=== PATIENT | female | born 1990 | race American Indian/Alaskan Native ===

== ENCOUNTER 2020-12-06 02:56 | Emergency (ER) | payer SELFPAY ==
[2020-12-06 03:29] LABS: Bilirubin,Urine NEG (Negative); Blood,Urine LG (Negative); Color,Urine Yellow (Yellow); Mucus,Urine 3+ /HPF; Urobilinogen,Urine < 2.0 mg/dL (<2.0)
[2020-12-06 03:30] LABS: RBC,Urine > 182.0 /HPF (0.0-6.0); WBC,Urine > 182.0 /HPF (0.0-6.0)
[2020-12-06 03:31] LABS: HCG Qualitative,Urine Positive (Negative)
[2020-12-06] MEDS ORDERED: LIDOCAINE-MPF (1%) 10 MG/1 ML VIAL 5 ML INFILTRATI ONE (03:51)
[2020-12-06 04:02] LABS: Basophils % (Auto) 0.1 % (0.0-1.8); Eosinophils % (Auto) 0.2 % (0.0-4.3); Hematocrit 34.8 % (30.3-42.9); Hemoglobin 12.1 gm/dl (10.1-14.3); Lymphocytes # (Auto) 0.7 K/mm3 (1.2-5.4); Mean Corpuscular HGB Conc 35 % (30-34); Mean Corpuscular Volume 93 fl (79-97); Monocytes # (Auto) 0.8 K/mm3 (0.0-0.8); Monocytes % (Auto) 5.4 % (0.0-7.3); Platelet Count 247 K/mm3 (140-440); Red Blood Count 3.74 M/mm3 (3.65-5.03); Red Cell Distribution Width 13.4 % (13.2-15.2)
[2020-12-06] MEDS ORDERED: cefTRIAXone/NS 2 GM/100 ML 2 GM/100 ML BAG IV ONE (04:02)
[2020-12-06] MEDS ORDERED: ACETAMINOPHEN 500 MG TAB PO ONE (04:17)
[2020-12-06 04:23] LABS: Alanine Aminotransferase 13 units/L (7-56); Albumin 4.3 g/dL (3.9-5); Blood Urea Nitrogen 9 mg/dL (7-17); Hemolysis Index 2
[2020-12-06 04:29] LABS: BUN/Creatinine Ratio 15
[2020-12-06] MEDS ORDERED: SODIUM CHLORIDE 0.9% 1000 ML 2,000 ML IV ONE (04:30)
--- NOTE | 2020-12-06 05:29 | Ultrasound Report ---
ULTRASOUND OBSTETRIC INDICATION / CLINICAL INFORMATION: pelvic pain. TECHNIQUE: Transabdominal and Transvaginal. COMPARISON: None available. FINDINGS: No IUP visualized on transabdominal or transvaginal images ADNEXA: Left ovarian corpus luteal cyst measures 0.7 x 1.0 x 0.7 cm. Right ovary within normal limits . FREE FLUID: None. ADDITIONAL FINDINGS: None. IMPRESSION: 1. No IUP visualized. Follow-up with hCG and ultrasound recommended 2. 1 cm complex left corpus luteal cyst Signer Name: Yo Lieberman MD Signed: 12/06/2020 5:25 AM Workstation Name: [email or web address]
--- NOTE | 2020-12-06 05:40 | Emergency Department Report ---
ED HPI - General Chief complaint: Urogenital-Female Stated complaint: ABD PAIN/BURNING URINATION Time Seen by Provider: 12/06/20 03:17 Source: patient Mode of arrival: Ambulatory Limitations: No Limitations - History of Present Illness Initial comments: This is a 30-year-old female nontoxic, well nourished in appearance, no acute signs of distress presents to the ED with c/o of dysuria, pelvic pain, and vaginal bleeding x1 day. Patient is unsure if shes . LMP was about 11/01/2020. Patient denies any upper abdominal pain. Denies any flank pains. Patient denies any vaginal discharge or foul odor. Patient denies any nausea, v omiting, chest pain, shortness of breathe, fever, chills, headache, stiff neck, numbness, tingling. Patient denies any other urinary symptoms. Patient denies any allergies or PMH. -: days(s) Location: pelvis Radiation: none Severity: mild Severity scale (0 -10): 3 Quality: cramping, aching Consistency: intermittent Improves with: none Worsens with: none Associated symptoms: vaginal bleeding, dysuria. denies: nausea/vomiting, vaginal discharge, abdominal pain, headache, vision changes, malaise, dysparuenia, rash, seizure, shortness of breath, syncope, weakness Vaginal bleeding: light :: Yes Pre-meenu care: none - Related Data Previous Rx's Medication Instructions Recorded Last Taken Type Nitrofurantoin Dare/M-Cryst 100 mg PO Q12HR #14 capsule 12/06/20 Unknown Rx [Macrobid CAP] 21/Iron Fu/Folic Acid 1 each PO DAILY #30 tablet 12/06/20 Unknown Rx [ Complete Caplet] Allergies Allergy/AdvReac Type Severity Reaction Status Date / Time coconut Allergy Anaphylaxis Verified 12/06/20 02:58 ED Review of Systems ROS: Stated complaint: ABD PAIN/BURNING URINATION Other details as noted in HPI Comment: All other systems reviewed and negative Constitutional: denies: chills, fever Eyes: denies: eye pain, eye discharge, vision change ENT: denies: ear pain, throat pain Respiratory: denies: cough, shortness of breath, wheezing Cardiovascular: denies: chest pain, palpitations Endocrine: no symptoms reported Gastrointestinal: denies: abdominal pain, nausea, diarrhea Genitourinary: dysuria, abnormal menses. denies: urgency, frequency, hematuria, discharge, dyspareunia Musculoskeletal: denies: back pain, joint swelling, arthralgia Skin: denies: rash, lesions Neurological: denies: headache, weakness, paresthesias Psychiatric: denies: anxiety, depression Hematological/Lymphatic: denies: easy bleeding, easy bruising ED Past Medical Hx - Past Medical History Previous Medical History?: No - Surgical History Past Surgical History?: No - Social History Smoking Status: Never Smoker Substance Use Type: None - Medications Home Medications: Home Medications Medication Instructions Recorded Confirmed Last Taken Type Nitrofurantoin Dare/M-Cryst 100 mg PO Q12HR #14 capsule 12/06/20 Unknown Rx [Macrobid CAP] 21/Iron Fu/Folic Acid 1 each PO DAILY #30 tablet 12/06/20 Unknown Rx [ Complete Caplet] ED Physical Exam - General Limitations: No Limitations General appearance: alert, in no apparent distress - Head Head exam: Present: atraumatic, normocephalic - Eye Eye exam: Present: normal appearance - Neck Neck exam: Present: normal inspection, full ROM. Absent: tenderness, meningismus, lymphadenopathy - Respiratory Respiratory exam: Present: normal lung sounds bilaterally. Absent: respiratory distress, wheezes, rales, rhonchi, stridor, chest wall tenderness, accessory muscle use, decreased breath sounds, prolonged expiratory - Cardiovascular Cardiovascular Exam: Present: regular rate, normal rhythm, normal heart sounds. Absent: irregular rhythm, systolic murmur, diastolic murmur, rubs, gallop - GI/Abdominal GI/Abdominal exam: Present: soft, normal bowel sounds. Absent: distended, tenderness, guarding, rebound, rigid, diminished bowel sounds - Extremities Exam Extremities exam: Present: full ROM - Back Exam Back exam: Present: normal inspection, full ROM. Absent: tenderness, CVA tenderness (R), CVA tenderness (L), muscle spasm, paraspinal tenderness, vertebral tenderness, rash noted - Neurological Exam Neurological exam: Present: alert, oriented X3, normal gait - Psychiatric Psychiatric exam: Present: normal affect, normal mood - Skin Skin exam: Present: warm, dry, intact, normal color. Absent: rash ED Course Vital Signs 12/06/20 12/06/20 12/06/20 03:00 03:17 03:18 Temperature 97.9 F 97.9 F Pulse Rate 101 H 101 H Respiratory 16 16 16 Rate Blood Pressure 124/55 Blood Pressure 124/55 [Left] O2 Sat by Pulse 100 100 100 Oximetry - Reevaluation(s) Reevaluation #1: 12/06/20 05:38 Patient is speaking in full sentences with no signs of distress noted. ED Medical Decision Making - Lab Data Result diagrams: 12/06/20 03:30 12/06/20 03:30 Lab Results 12/06/20 12/06/20 12/06/20 Range/Units 03:10 03:30 03:30 WBC 14.7 H (4.5-11.0) K/mm3 RBC 3.74 (3.65-5.03) M/mm3 Hgb 12.1 (10.1-14.3) gm/dl Hct 34.8 (30.3-42.9) % MCV 93 (79-97) fl MCH 32 (28-32) pg MCHC 35 H (30-34) % RDW 13.4 (13.2-15.2) % Plt Count 247 (140-440) K/mm3 Lymph % (Auto) 5.0 L (13.4-35.0) % Dare % (Auto) 5.4 (0.0-7.3) % Eos % (Auto) 0.2 (0.0-4.3) % Baso % (Auto) 0.1 (0.0-1.8) % Lymph # (Auto) 0.7 L (1.2-5.4) K/mm3 Dare # (Auto) 0.8 (0.0-0.8) K/mm3 Eos # (Auto) 0.0 (0.0-0.4) K/mm3 Baso # (Auto) 0.0 (0.0-0.1) K/mm3 Seg Neutrophils % 89.3 H (40.0-70.0) % Seg Neutrophils # 13.1 H (1.8-7.7) K/mm3 Sodium 130 L (137-145) mmol/L Potassium 4.1 (3.6-5.0) mmol/L Chloride 96.1 L (98-107) mmol/L Carbon Dioxide 23 (22-30) mmol/L Anion Gap 15 mmol/L BUN 9 (7-17) mg/dL Creatinine 0.6 (0.6-1.2) mg/dL Estimated GFR > 60 ml/min BUN/Creatinine Ratio 15 % Glucose 111 H (65-100) mg/dL Calcium 9.0 (8.4-10.2) mg/dL Total Bilirubin 0.60 (0.1-1.2) mg/dL AST 19 (5-40) units/L ALT 13 (7-56) units/L Alkaline Phosphatase 45 (35-129) units/L Total Protein 7.2 (6.3-8.2) g/dL Albumin 4.3 (3.9-5) g/dL Albumin/Globulin Ratio 1.5 % Lipase 15 (13-60) units/L HCG, Quant (0-4) mIU/mL Urine Color Yellow (Yellow) Urine Turbidity Cloudy (Clear) Urine pH 5.0 (5.0-7.0) Ur Specific [place] 1.018 (1.003-1.030) Urine Protein 100 mg/dl (Negative) mg/dL Urine Glucose (UA) Neg (Negative) mg/dL Urine Ketones Tr (Negative) mg/dL Urine Blood Lg (Negative) Urine Nitrite Pos (Negative) Urine Bilirubin Neg (Negative) Urine Urobilinogen < 2.0 (<2.0) mg/dL Ur Leukocyte Esterase Lg (Negative) Urine WBC (Auto) > 182.0 H (0.0-6.0) /HPF Urine RBC (Auto) > 182.0 (0.0-6.0) /HPF U Epithel Cells (Auto) 11.0 (0-13.0) /HPF Urine WBC Clumps 3+ /HPF Urine Mucus 3+ /HPF Urine Yeast (Budding) 3+ /HPF Urine HCG, Qual Positive A (Negative) Blood Type 12/06/20 12/06/20 Range/Units 03:30 03:50 WBC (4.5-11.0) K/mm3 RBC (3.65-5.03) M/mm3 Hgb (10.1-14.3) gm/dl Hct (30.3-42.9) % MCV (79-97) fl MCH (28-32) pg MCHC (30-34) % RDW (13.2-15.2) % Plt Count (140-440) K/mm3 Lymph % (Auto) (13.4-35.0) % Dare % (Auto) (0.0-7.3) % Eos % (Auto) (0.0-4.3) % Baso % (Auto) (0.0-1.8) % Lymph # (Auto) (1.2-5.4) K/mm3 Dare # (Auto) (0.0-0.8) K/mm3 Eos # (Auto) (0.0-0.4) K/mm3 Baso # (Auto) (0.0-0.1) K/mm3 Seg Neutrophils % (40.0-70.0) % Seg Neutrophils # (1.8-7.7) K/mm3 Sodium (137-145) mmol/L Potassium (3.6-5.0) mmol/L Chloride (98-107) mmol/L Carbon Dioxide (22-30) mmol/L Anion Gap mmol/L BUN (7-17) mg/dL Creatinine (0.6-1.2) mg/dL Estimated GFR ml/min BUN/Creatinine Ratio % Glucose (65-100) mg/dL Calcium (8.4-10.2) mg/dL Total Bilirubin (0.1-1.2) mg/dL AST (5-40) units/L ALT (7-56) units/L Alkaline Phosphatase (35-129) units/L Total Protein (6.3-8.2) g/dL Albumin (3.9-5) g/dL Albumin/Globulin Ratio % Lipase (13-60) units/L HCG, Quant 924.9 H (0-4) mIU/mL Urine Color (Yellow) Urine Turbidity (Clear) Urine pH (5.0-7.0) Ur Specific [place] (1.003-1.030) Urine Protein (Negative) mg/dL Urine Glucose (UA) (Negative) mg/dL Urine Ketones (Negative) mg/dL Urine Blood (Negative) Urine Nitrite (Negative) Urine Bilirubin (Negative) Urine Urobilinogen (<2.0) mg/dL Ur Leukocyte Esterase (Negative) Urine WBC (Auto) (0.0-6.0) /HPF Urine RBC (Auto) (0.0-6.0) /HPF U Epithel Cells (Auto) (0-13.0) /HPF Urine WBC Clumps /HPF Urine Mucus /HPF Urine Yeast (Budding) /HPF Urine HCG, Qual (Negative) Blood Type O POSITIVE - Radiology Data [address] [address] Ultrasound Report Signed Patient: RENATA LUCIANO MR#: [id number] : 1990 Acct:[id number] Age/Sex: 30 / F ADM Date: 12/06/20 Loc: ED Attending Dr: Ordering Physician: DINA JAMES NP Date of Service: 12/06/20 Procedure(s): US OB transvaginal Accession Number(s): [id number] cc: DINA JAMES NP ULTRASOUND OBSTETRIC INDICATION / CLINICAL INFORMATION: pelvic pain. TECHNIQUE: Transabdominal and Transvaginal. COMPARISON: None available. FINDIN GS: No IUP visualized on transabdominal or transvaginal images ADNEXA: Left ovarian corpus luteal cyst measures 0.7 x 1.0 x 0.7 cm. Right ovary within normal limits. FREE FLUID: None. ADDITIONAL FINDINGS: None. IMPRESSION: 1. No IUP visualized. Follow-up with hCG and ultrasound recommended 2. 1 cm complex left corpus luteal cyst Signer Name: Yo Lieberman MD Signed: 12/06/2020 5:25 AM Workstation Name: [id number] Transcribed By: TL Dictated By: Yo Lieberman MD Electronically Authenticated By: Yo Lieberman MD Signed Date/Time: 12/06/20524 DD/ 2 TD/TT: [address] [address] Ultrasound Report Signed Patient: RENATA LUCIANO MR#: [id number] : 1990 Acct:[id number] Age/Sex: 30 / F ADM Date: 12/06/20 Loc: ED Attending Dr: Ordering Physician: DINA JAMES NP Date of Service: 12/06/20 Procedure(s): US OB transvaginal Accession Number(s): [id number] cc: DINA JAMES NP ULTRASOUND OBSTETRIC INDICATION / CLINICAL INFORMATION: pelvic pain. TECHNIQUE: Transabdominal and Transvaginal. COMPARISON: None available. FINDINGS: No IUP visualized on transabdominal or transvaginal images ADNEXA: Left ovarian corpus luteal cyst measures 0.7 x 1.0 x 0.7 cm. Right ovary within normal limits. FREE FLUID: None. ADDITIONAL FINDINGS: None. IMPRESSION: 1. No IUP visualized. Follow-up with hCG and ultrasound recommended 2. 1 cm complex left corpus luteal cyst Signer Name: Yo Lieberman MD Signed: 12/06/2020 5:25 AM Workstation Name: [id number] Transcribed By: TL Dictated By: Yo Lieberman MD Electronically Authenticated By: Yo Lieberman MD Signed Date/Time: 12/06/20524 DD/ 2 TD/TT: - Medical Decision Making This is a 30-year-old female presents with threatened miscarriage and UTI. P atient is stable and was examined by me. Normal abdominal exam. US OB obtained and dictated by the radiologist. Ua obtained. Quantative serum test obtained. Patient received Rocephin IV and Tylenol was stated symptoms of pain significantly decreased and resolved prior to discharge. Patient notified of the US report with no questions noted by the patient. Patient was instructed f/u with [facility] in 2 days for a repeat quantitative test and possible ultrasound. RH factor positive. Labs within normal limits. Patient was given strict precautions and education on ectopic . At time of discharge, the patient does not seem toxic or ill in appearance. No acute signs of distre ss noted. Patient agrees to discharge treatment plan of care. No further questions noted by the patient. Critical care attestation.: If time is entered above; I have spent that time in minutes in the direct care of this critically ill patient, excluding procedure time. ED Disposition Clinical Impression: Threatened miscarriage UTI in Qualifiers: Trimester: first trimester Qualified Code(s): O23.41 - Unspecified infection of urinary tract in , first trimester Disposition: - TO HOME OR SELFCARE Is pt being admited?: No Does the pt Need Aspirin: No Condition: Stable Instructions: Threatened Miscarriage, Urinary Tract Infection, Adult, [id number] Additional Instructions: Follow-up with a [facility] doctor in 2 days for a repeat blood test and possible ultrasound or if symptoms worsen and continue return to emergency room as soon as possible. Prescriptions: Nitrofurantoin Dare/M-Cryst [Macrobid CAP] 100 mg PO Q12HR #14 capsule 21/Iron Fu/Folic Acid [ Complete Caplet] 1 each PO DAILY #30 tablet Referrals: PRIMARY CAREMD [Primary Care Provider] - 3-5 Days [facility] [Provider Group] - 12/08/20 [facility] [Provider Group] - 12/08/20 Time of Disposition: 05:41
[2020-12-06 06:07] VITALS: BP 105/60
== END 2020-12-06 06:08 | disposition home or self-care (01) ==
LOC: ED 02:56
DX: O20.0 Threatened abortion (principal); O23.41 Unspecified infection of urinary tract in pregnancy, first trimester; Z3A.01 Less than 8 weeks gestation of pregnancy; Z91.018 Allergy to other foods
CPT/HCPCS: 36415; 76801; 76817; 80053; 81001; 81025; 83690; 84702; 85025; 86900; 86901; 96365; 99284; J0696; J7030